=== PATIENT | male | born 1995 | race American Indian/Alaskan Native ===

== ENCOUNTER 2017-11-27 13:24 | Emergency (ER) | payer MEDICAID, OTHER ==
[2017-11-27 13:42] VITALS: BP 119/74; PULSE 65; RESP 18; TEMP 98.7; O2SAT 100
--- NOTE | 2017-11-27 13:59 | C.PDOC ---
History Of Present Illness 22 y/o male presents to the ER for evaluation of insect bite to the left arm 1 week ago. Patient states that the area is itchy and he has been scratching at it. Patient reports that the area looks red and swollen today. Time Seen by Provider: 11/27/17 13:44 Chief Complaint (Nursing): Abnormal Skin Integrity History Per: Patient History/Exam Limitations: no limitations Onset/Duration Of Symptoms: Days Current Symptoms Are (Timing): Still Present Quality Of Symptoms: Itching Severity: Moderate Past Medical History Reviewed: Historical Data, Nursing Documentation, Vital Signs Vital Signs: Last Vital Signs Temp 98.7 F 11/27/17 13:40 Pulse 65 11/27/17 13:40 Resp 18 11/27/17 13:40 BP 119/74 11/27/17 13:40 Pulse Ox 100 11/27/17 15:36 - Medical History PMH: No Chronic Diseases Surgical History: No Surg Hx Family History: States: No Known Family Hx - Social History Hx Alcohol Use: Yes Hx Substance Use: No Review Of Systems Except As Marked, All Systems Reviewed And Found Negative. Constitutional: Negative for: Fever, Chills Skin: Positive for: Other (redness and swelling to left arm) Physical Exam - Physical Exam Appears: Non-toxic, No Acute Distress Skin: Normal Color, Warm, Dry, Other (left upper arm: proximal to elbow on volar surface with visible insect bite and mild 1 cm surrounding erythema; no induration mass or fluctuance) Head: Atraumatic, Normacephalic Eye(s): bilateral: Normal Inspection Neck: Supple Chest: Symmetrical Extremity: Normal ROM, No Tenderness, No Deformity, No Swelling Pulses: Left Radial: Normal Neurological/Psych: Oriented x3, Normal Speech Gait: Steady ED Course And Treatment O2 Sat by Pulse Oximetry: 100 (RA) Pulse Ox Interpretation: Normal Medical Decision Making Medical Decision Making: Patient has been discharged. Patient has been instructed to use Benadryl or other allergy time medication for itching and apply antibiotic cream to area. 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 - Scribe Statement The provider has reviewed the documentation as recorded by the Carmelaibe Rossana Richter Provider Attestation All medical record entries made by the Carmelaibruiz were at my direction and personally dictated by me. I have reviewed the chart and agree that the record accurately reflects my personal performance of the history, physical exam, medical decision making, and the department course for this patient. I have also personally directed, reviewed, and agree with the discharge instructions and disposition.
== END 2017-11-27 14:22 | disposition home or self-care (01) ==
LOC: C.ER 13:24
DX: S40.862A Insect bite (nonvenomous) of left upper arm, initial encounter (principal); W57.XXXA Bitten or stung by nonvenomous insect and other nonvenomous arthropods, initial encounter

== ENCOUNTER 2018-05-22 15:21 | Emergency (ER) | payer MEDICAID ==
[2018-05-22 15:27] VITALS: BMI 30.2
[2018-05-22 15:30] VITALS: BP 130/89; PULSE 87; RESP 18; TEMP 97.3; O2SAT 98
--- NOTE | 2018-05-22 16:04 | C.PDOC ---
History Of Present Illness 23 y/o male presents to the ED with 2 day history of runny nose, congestion, cough, nausea, and bodyaches. He denies any associated fever, sore throat, vomiting, or diarrhea. No known sick contacts. No recent travel. Time Seen by Provider: 05/22/18 15:44 Chief Complaint (Nursing): Flu-like Symptoms History Per: Patient History/Exam Limitations: no limitations Onset/Duration Of Symptoms: Days Current Symptoms Are (Timing): Still Present Past Medical History Reviewed: Historical Data, Nursing Documentation, Vital Signs Vital Signs: Last Vital Signs Temp 97.3 F L 05/22/18 15:27 Pulse 87 05/22/18 15:27 Resp 18 05/22/18 15:27 BP 130/89 05/22/18 15:27 Pulse Ox 98 05/22/18 15:27 Surgical History: No Surg Hx Family History: States: No Known Family Hx - Social History Hx Tobacco Use: Yes Hx Alcohol Use: Yes Hx Substance Use: No - Immunization History Hx Tetanus Toxoid Vaccination: No Hx Influenza Vaccination: No Hx Pneumococcal Vaccination: No Review Of Systems Except As Marked, All Systems Reviewed And Found Negative. Constitutional: Positive for: Other (Body aches). Negative for: Fever ENT: Positive for: Nose Discharge, Nose Congestion. Negative for: Throat Pain Cardiovascular: Negative for: Chest Pain Respiratory: Positive for: Cough. Negative for: Shortness of Breath Gastrointestinal: Positive for: Nausea. Negative for: Vomiting, Diarrhea Physical Exam - Physical Exam Appears: Non-toxic, No Acute Distress Skin: Normal Color, Warm, Dry Head: Atraumatic, Normacephalic Eye(s): bilateral: Normal Inspection, PERRL, EOMI Nose: Normal Oral Mucosa: Moist Throat: Normal, No Erythema, No Exudate Neck: Normal ROM, Supple Chest: Symmetrical Cardiovascular: Rhythm Regular, No Murmur Respiratory: Normal Breath Sounds, No Rales, No Rhonchi, No Wheezing Extremity: Bilateral: Atraumatic, Normal Color And Temperature, Normal ROM Neurological/Psych: Oriented x3, Normal Speech ED Course And Treatment O2 Sat by Pulse Oximetry: 98 (RA) Pulse Ox Interpretation: Normal Medical Decision Making Medical Decision Making: Impression: URI Plan: Patient will be dicharged home with rx for Tessalon Perles, Naproxen, Zofran, and Sudafed. Disposition - Disposition Referrals: [facility] [Outside] Disposition: HOME/ ROUTINE Disposition Time: 16:01 Condition: STABLE Additional Instructions: follow up with your doctor within 2 days call to make an appointment take medications as prescribed return to ER if symptoms worsens or progress Prescriptions: Benzonatate [Tessalon Perles] 100 mg PO BID PRN #14 tab PRN Reason: Cough Naproxen [Naprosyn] 500 mg PO BID PRN #16 tab PRN Reason: Pain, Moderate (4-7) Ondansetron ODT [Zofran ODT] 4 mg PO TID PRN #12 odt PRN Reason: Nausea/Vomiting Pseudoephedrine HCl [Sudafed] 60 mg PO TID PRN #25 tablet PRN Reason: Cough And Congestion Instructions: Viral Upper Respiratory Infection, Adult (DC) Forms: General Discharge Instructions, [facility] (Ecuadorean), Work Excuse - Clinical Impression Clinical Impression: URI (upper respiratory infection) - Scribe Statement The provider has reviewed the documentation as recorded by the Caesar Marino Provider Attestation: All medical record entries made by the Carmelaibruiz were at my direction and personally dictated by me. I have reviewed the chart and agree that the record accurately reflects my personal performance of the history, physical exam, medical decision making, and the department course for this patient. I have also personally directed, reviewed, and agree with the discharge instructions and disposition.
== END 2018-05-22 16:41 | disposition home or self-care (01) ==
LOC: C.ER 15:21
DX: J06.9 Acute upper respiratory infection, unspecified (principal); Z87.891 Personal history of nicotine dependence